=== PATIENT | female | born 1970 | race Caucasian/White ===

== ENCOUNTER 2023-04-19 16:35 | Emergency (ER) | payer OTHER, MEDICAID, SELFPAY ==
[2023-04-19 16:38] VITALS: BP 143/83; PULSE 99; RESP 18; TEMP 36.2; O2SAT 97; BMI 29.2
[2023-04-19 16:51] VITALS: PULSE 86; RESP 22; O2SAT 96
[2023-04-19 16:52] VITALS: BP 135/82; PULSE 85; RESP 21; O2SAT 97
[2023-04-19 17:04] LABS: Add Manual Diff / Slide Review NO; Basophils Absolute Auto 0 /uL (0-100); Basophils Percent Auto 0.7 % (0-2); Eosinophils Absolute Auto 200 /uL (0-450); Hematocrit 41.4 % (36-46); Hemoglobin 14.2 g/dL (12.0-16.0); Lymphocytes Absolute Auto 2000 /uL (1100-4500); Lymphocytes Percent Auto 29.2 % (25-40); Mean Corpuscular HGB Conc 34.4 % (30-36); Mean Corpuscular Hemoglobin 31.2 PG (26-34); Mean Corpuscular Volume 90.8 fL (80-100); Monocytes Absolute Auto 600 /uL (0-900); Monocytes Percent Auto 9.1 % (3-14); Neutrophils Absolute Auto 3900 /uL (1500-7000); Platelet Count 228 X10^3/uL (150-400); Red Blood Cell Count 4.56 X10^6/uL (4.0-5.2); Red Cell Distribution Width 14.8 % (11.6-14.8); White Blood Cell Count 6.7 X10^3/uL (4.5-11.0)
--- NOTE | 2023-04-19 17:05 | PC.NURSE ---
pt heard yelling ow from room, RN at bedside to eval. pt yelling about bp cuff being too tight requesting for it to be taken off. taken off. call light in reach.
[2023-04-19 17:20] LABS: BUN Creatinine Ratio 41.4 (6-22); Blood Urea Nitrogen 24 mg/dL (7-17); Calcium 9.6 mg/dL (8.4-10.2); Carbon Dioxide 22 mmol/L (22-32); Chloride 107 mmol/L (98-107); Estimated Glomerular Filt Rate > 60 mL/min (>60); Glucose 147 mg/dL (70-100); HEMOLYSIS 28 (0-50); Potassium 3.9 mmol/L (3.4-5.1); Sodium 136 mmol/L (137-145)
--- NOTE | 2023-04-19 18:24 | ED.FEMALEGU ---
HPI - Female Genitourinary General Chief complaint: Urogenital-Female Stated complaint: vaginal bleeding/heavy/won't stop/T-5 Time Seen by Provider: 04/19/23 17:50 Source: patient Mode of arrival: Ambulatory History of Present Illness HPI Narrative: Patient is a 53-year-old female history of bipolar presenting today with 5 days of vaginal bleeding. She reports that she has not had a period for the last 6 months she thought that she was menopause. She reports that she has had increased heavy bleeding. She ran out of pads today she has been using a towel fear. She could go dizzy lightheaded. Mild abdominal cramping. No chest pain shortness of breath or other symptoms Related Data Home Medications Medication Instructions Recorded Confirmed clonazepam 0.5 mg tablet (Klonopin) 0.5 mg PO BID 11/21/17 11/21/17 gabapentin 600 mg tablet 600 mg PO BID 11/21/17 11/21/17 lithium carbonate 300 mg tablet 300 mg PO TID 11/21/17 11/21/17 mirtazapine 15 mg tablet 15 mg PO DAILY 11/21/17 11/21/17 quetiapine 200 mg tablet (Seroquel) 500 mg PO TID 11/21/17 11/21/17 Allergies Allergy/AdvReac Type Severity Reaction Status Date / Time No Known Drug Allergies Allergy Verified 11/21/17 13:53 Patient History tobacco type: cigarettes Substance Use Type: marijuana Exam Initial Vital Signs Initial Vital Signs: Vital Signs Temperature 97.1 F L 04/19/23 16:38 Pulse Rate 99 H 04/19/23 16:38 Respiratory Rate 18 04/19/23 16:38 Blood Pressure 143/83 H 04/19/23 16:38 Pulse Oximetry 97 04/19/23 16:38 Oxygen Delivery Method Room Air 04/19/23 16:38 GENERAL: Alert pleasant well-appearing 53-year-old female and in no acute distress. HEENT: Head atraumatic,EOMI, pupils reactive, face symmetric, moist mucous membranes CARDIOVASCULAR: Regular rate and rhythm without murmurs, rubs or gallops. RESPIRATORY: Breath sounds equal bilaterally, no wheezes rales or rhonchi. ABDOMEN: Soft, nontender. Normoactive bowel sounds all 4 quadrants. No guarding or rebound. PELVIC: External genitalia is normal, mild amount vaginal, no significant clot no vaginal discharge, no odor, cervical os is open EXTREMITIES: Normal range of motion, no clubbing or edema. Neurovascularly intact NEUROLOGICAL: Alert and oriented x4.Normal gait and speech. SKIN: Warm, dry, no laceration, no petechiae, no rashes or lesions. Course Orders Ordered: ED Orders 04/19/23 18:30 Urinalysis and Microscopic Stat 04/19/23 18:37 US pelvic complete Stat Discontinued Medications Acetaminophen (Acetaminophen 325 Mg Tablet) 975 mg PO NOW ONE Stop: 04/19/23 18:39 Last Admin: 04/19/23 19:15 Dose: 975 mg Documented By: MIKEY Ketorolac Tromethamine (Ketorolac 30 Mg/Ml Vial) 15 mg IV NOW ONE Stop: 04/19/23 18:39 Last Admin: 04/19/23 19:15 Dose: 15 mg Documented By: MIKEY Vital Signs Vital signs: Vital Signs - 8 hr 04/19/23 20:45 Pulse Rate 84 Respiratory Rate 20 Blood Pressure 140/82 Pulse Oximetry 96 Oxygen Delivery Method Room Air MDM - Female Genitourinary Lab Data 04/19/23 16:59 04/19/23 16:59 Labs: Lab Results 04/19/23 04/19/23 Range/Units 16:59 18:30 WBC 6.7 (4.5-11.0) X10^3/uL RBC 4.56 (4.0-5.2) X10^6/uL Hgb 14.2 (12.0-16.0) g/dL Hct 41.4 (36-46) % MCV 90.8 (80-100) fL MCH 31.2 (26-34) PG MCHC 34.4 (30-36) % RDW 14.8 (11.6-14.8) % Plt Count 228 (150-400) X10^3/uL Neut % (Auto) 58.0 (50-75) % Lymph % (Auto) 29.2 (25-40) % Haines % (Auto) 9.1 (3-14) % Eos % (Auto) 3.0 (2-4) % Baso % (Auto) 0.7 (0-2) % Neut # (Auto) 3900 (6455-5650) /uL Lymph # (Auto) 2000 (7302-9150) /uL Haines # (Auto) 600 (0-900) /uL Eos # (Auto) 200 (0-450) /uL Baso # (Auto) 0 (0-100) /uL Sodium 136 L (137-145) mmol/L Potassium 3.9 (3.4-5.1) mmol/L Chloride 107 (98-107) mmol/L Carbon Dioxide 22 (22-32) mmol/L BUN 24 H (7-17) mg/dL Creatinine 0.58 (0.52-1.04) mg/dL Estimated GFR > 60 (>60) mL/min BUN/Creatinine Ratio 41.4 H (6-22) Glucose 147 H (70-100) mg/dL Calcium 9.6 (8.4-10.2) mg/dL Urine Color Red Urine Appearance Slightly cloudy Urine pH TNP Ur Specific [place] TNP Urine Protein TNP Urine Glucose (UA) TNP Urine Ketones TNP Urine Occult Blood TNP Urine Nitrate TNP Urine Bilirubin TNP Urine Urobilinogen TNP Ur Leukocyte Esterase TNP Urine RBC >100/hpf H (0-5/HPF) Urine WBC 1-5/hpf (0-5/HPF) Ur Squamous Epith Cells 1-5 /hpf (0-5/HPF) Urine Bacteria None seen (None) Ur Culture Indicated? Cult not indicated Vol Urine Centrifuged 10ml (spun) Blood Type B Positive Antibody Screen Negative Imaging Data US - [employer]: Radiologist's Impression: PROCEDURE: US PELVIC COMPLETE INDICATIONS: vaginal bleeding TECHNIQUE: Real-time scanning was performed of the pelvic organs, with image documentation. Additional endovaginal scanning was necessary due to incomplete visualization of the adnexal and endometrial structures by transabdominal scanning. COMPARISON: CR, XR CHEST 2 VIEWS, 04/14/2018, 14:48. FINDINGS: Uterus: Uterus is anteverted and normal in size at 8.8 x 6.8 x 5.6 cm. The myometrium is homogeneous. The endometrium measures 7 mm combined thickness. There is a mid posterior focus of intramural heterogeneous echogenicity measuring 2.3 x 2.2 x 2.2 cm. Ovaries: Not visualized. Other: No pathologic free abdominal or pelvic fluid. IMPRESSION: Focus uterine echogenicity suggestive of fibroid. We strive to produce accurate, complete, and clear reports of imaging services. To assist us in improving patient care, this report was composed using standard report templates and voice recognition software. Therefore, it may contain abnormal punctuation, insertions and/or omissions. Occasional wrong-word or sound-alike substitutions may occur. Though we review the report and make efforts to correct it, we do recommend that the report be read carefully in proper context to recognize any text inaccuracies. Dictated by: Romy Cosme M.D. on 04/19/2023 at [facility] Narrative Medical decision making narrative: Patient 53-year-old female who has not had a menstrual period for about 6 months started bleeding heavily over the last 5 days. Hemoglobin 14 hematocrit 41 no evidence of anemia. Pelvic ultrasound does show uterine fibroid without significantly thickened endometrium. Recommend close folding machine feeder follow-up. No excessive vaginal bleeding at this time. Hemodynamically stable Other blood work has also been reviewed without clinical significant abnormalities Discharge Plan Departure Patient Disposition: Home Clinical Impression: Fibroid, uterine Instructions: DI for Uterine Fibroids Activity Restrictions/Additional Instructions: *You have been diagnosed with uterine fibroids *What to do: At this time you have a fibroid likely causing your vaginal bleeding. You do need to follow-up with OBGYN to discuss options *Continue to take medications as directed *Follow up with your primary care provider in 2-3 days or call [phone] *Return to ER if you should have increasing heavy bleeding more than 2 super pads in 1 hour dizziness lightheadedness passing out shortness of breath or any new, worsening or concerning symptoms Prescriptions: No Action gabapentin 600 mg tablet 600 mg PO BID clonazepam [Klonopin] 0.5 mg tablet 0.5 mg PO BID quetiapine [Seroquel] 200 mg tablet 500 mg PO TID mirtazapine 15 mg tablet 15 mg PO DAILY lithium carbonate 300 mg tablet 300 mg PO TID Referrals: Riri Robbins DO [Physician] - Bernarda Shay MD [Physician] - Mira Carpio MD [Physician] - China Womack DO [Physician] - Norman Muller MD [Physician] - Stand Alone Forms: Patient Portal/API
--- NOTE | 2023-04-19 18:37 | DI.US.S_ITS ---
PROCEDURE: US PELVIC COMPLETE INDICATIONS: vaginal bleeding TECHNIQUE: Real-time scanning was performed of the pelvic organs, with image documentation. Additional endovaginal scanning was necessary due to incomplete visualization of the adnexal and endometrial structures by transabdominal scanning. COMPARISON: CR, XR CHEST 2 VIEWS, 04/14/2018, 14:48. FINDINGS: Uterus: Uterus is anteverted and normal in size at 8.8 x 6.8 x 5.6 cm. The myometrium is homogeneous. The endometrium measures 7 mm combined thickness. There is a mid posterior focus of intramural heterogeneous echogenicity measuring 2.3 x 2.2 x 2.2 cm. Ovaries: Not visualized. Other: No pathologic free abdominal or pelvic fluid. IMPRESSION: Focus uterine echogenicity suggestive of fibroid. We strive to produce accurate, complete, and clear reports of imaging services. To assist us in improving patient care, this report was composed using standard report templates and voice recognition software. Therefore, it may contain abnormal punctuation, insertions and/or omissions. Occasional wrong-word or sound-alike substitutions may occur. Though we review the report and make efforts to correct it, we do recommend that the report be read carefully in proper context to recognize any text inaccuracies. Dictated by: Romy Cosme M.D. on 04/19/2023 at 19:53 Approved by: Romy Cosme M.D. on 04/19/2023 at 19:54
[2023-04-19 18:47] LABS: Appearance Urine UA Slightly Cloudy
[2023-04-19 18:48] LABS: Color Urine UA RED
[2023-04-19] MEDS: ACETAMINOPHEN 325 MG TABLET 975 MG PO (19:15)
[2023-04-19] MEDS: KETOROLAC 30 MG/ML VIAL 15 MG IV (19:15)
[2023-04-19 19:18] LABS: RBC Urine >100/HPF (0-5/HPF); Urine Volume 10mL (spun)
[2023-04-19 19:19] LABS: Bacteria Urine None Seen; Culture Indicated Urine Cult Not Indicated; Squamous Epithelial Cell Urine 1-5 /HPF (0-5/HPF); WBC Urine 1-5/HPF (0-5/HPF)
[2023-04-19 20:45] VITALS: BP 140/82; PULSE 84; RESP 20; O2SAT 96
== END 2023-04-19 21:18 | disposition home or self-care (01) ==
PROVIDERS: Emergency Medicine; Emergency Provider Emergency Medicine
DX: D25.1 Intramural leiomyoma of uterus (principal)
CPT/HCPCS: 36415; 76830; 76856; 80048; 81001; 85025; 86850; 86900; 86901; 96374; 99284; J1885

== ENCOUNTER → 2023-05-31 14:57 | Outpatient (CLI) | payer OTHER, MEDICAID, SELFPAY ==
[2023-06-02 15:07] LABS: Candida species Negative (Negative); Gardnerella vaginalis Positive (Negative); Trichomoas vaginalis Negative (Negative)
== END ==
PROVIDERS: Visit Provider Specialist
DX: N89.8 Other specified noninflammatory disorders of vagina (principal)
CPT/HCPCS: 87480; 87510; 87660